=== PATIENT | male | born 1970 | race African-American/Black ===

== ENCOUNTER 2016-07-09 04:13 | Emergency (ER) | payer OTHER ==
[~2016-07-09] VITALS: Ht 180.3 cm; Wt 110.0 kg
[~2016-07-09 04:13] MED LIST: Z.0.NO CURRENT MEDS
[2016-07-09 04:21] VITALS: BP 139/72; PULSE 104; RESP 14; TEMP 99.5; O2SAT 98
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
--- NOTE | 2016-07-09 08:35 | RADRPT ---
EXAM DATE/TIME: 07/09/2016 08:20 [facility] COMPARISON: No previous studies available for comparison. INDICATIONS : Lateral tibial plateau fracture. RADIATION DOSE: 7.45 CTDIvol (mGy) MEDICAL HISTORY : None SURGICAL HISTORY : None. ENCOUNTER: Initial ACUITY: 1 day PAIN SCALE: 10/10 LOCATION: Right knee. TECHNIQUE: Volumetric scanning of the knee was performed. Using automated exposure control and adjustment of th e mA and/or kV according to patient size, radiation dose was kept as low as reasonably achievable to obtain optimal diagnostic quality images. FINDINGS: CT confirms a mildly displaced fracture of the proximal fibula. There is also a comminuted fracture t hrough the posterior aspect of the lateral tibial plateau with mild displacement. Positive knee joint effusion is present. The distal femur, patella and medial tibial plateau are intact. CONCLUSION: 1. Fractures of proximal fibula and posterior aspect of lateral tibial plateau as above. Frankie Sheldon MD on July 09, 2016 at 8:30 Board Certified Radiologist. This report was verified electronically.
[2016-07-09] MEDS ORDERED: TRAM50TA PO (09:09)
[2016-07-09] MEDS ORDERED: traMADol HCL 50 MG TAB PO ONE (09:15)
== END 2016-07-09 10:09 | disposition home or self-care (01) ==
LOC: NEPB 04:13
DX: S82.831A Other fracture of upper and lower end of right fibula, initial encounter for closed fracture (principal); S82.62XA Displaced fracture of lateral malleolus of left fibula, initial encounter for closed fracture; M25.461 Effusion, right knee; V28.4XXA Motorcycle driver injured in noncollision transport accident in traffic accident, initial encounter; Y93.89 Activity, other specified; Y92.488 Other paved roadways as the place of occurrence of the external cause; Y99.8 Other external cause status
CPT/HCPCS: 73564; 73610; 73660; 73700; 99284; E0113; L1830; L2114